=== PATIENT | female | born 1970 | race Caucasian/White ===

== ENCOUNTER 2022-09-28 07:27 | Emergency (ER) | payer OTHER ==
[~2022-09-28] VITALS: Ht 170.1 cm; Wt 63.5 kg
[2022-09-28 08:19] LABS: BASO % 0.3 % (0.0-1.0); EOS # 0.1 10*3/uL (0.0-0.4); EOS % 0.7 % (1.0-4.0); HEMATOCRIT 41.7 % (37.0-47.0); LYMPH # 3.5 10*3/uL (1.3-4.4); LYMPH % 34.4 % (27.0-41.0); MEAN CELL VOLUME 95.9 fl (81.0-99.0); MEAN CORPUSCULAR HGB 32.2 pg (27.0-31.0); MEAN CORPUSCULAR HGB CONC 33.6 g/dl (33.0-37.0); MEAN PLATELET VOLUME 7.9 fl (9.6-12.3); MONO # 0.7 10*3/uL (0.1-1.0); MONO % 7.4 % (3.0-9.0); NEUT # 5.7 10*3/uL (2.3-7.9); NEUT % 56.6 % (47.0-73.0); PLATELET COUNT AUTOMATED 314 10*3/uL (130-400); RED BLOOD COUNT 4.35 10*6/uL (4.10-5.10); RED CELL DISTRI WIDTH 13.1 % (0-14.5); WHITE BLOOD COUNT 10.1 10*3/uL (4.8-10.8)
[2022-09-28 08:43] LABS: ALKALINE PHOSPHATASE 46 U/L (46-116); BUN 7 mg/dl (9-23); CHLORIDE 106 mmol/L (98-107); POTASSIUM 4.9 mmol/L (3.4-5.1); SGPT/ALT 15 U/L (10-49); TOTAL PROTEIN 5.8 gm/dL (6.0-8.0)
[2022-09-28] MEDS ORDERED: PREDNISONE10 MG PO (11:43)
[2022-09-28] MEDS ORDERED: HYDROCODONE-AC1 EAC1 PO (11:43)
[2022-09-28] MEDS ORDERED: CYCLOBENZAPRINE10 MG PO (11:43)
[2022-09-29] MEDS ORDERED: PREDNISONE20 M1 PO (12:20)
== END 2022-09-28 11:59 | disposition home or self-care (01) ==
LOC: ED 07:27
PROVIDERS: Emergency Medicine
DX: S39.012A Strain of muscle, fascia and tendon of lower back, initial encounter (principal); S16.1XXA Strain of muscle, fascia and tendon at neck level, initial encounter; W19.XXXA Unspecified fall, initial encounter; Y93.89 Activity, other specified; Y92.89 Other specified places as the place of occurrence of the external cause; Y99.8 Other external cause status

== ENCOUNTER 2022-09-29 11:26 | Emergency (ER) | payer OTHER ==
[~2022-09-29] VITALS: Ht 170.1 cm; Wt 63.5 kg
[~2022-09-29 11:26] MED LIST: CYCLOBENZAPRINE10 MG PO; HYDROCODONE-AC1 EAC1 PO; PREDNISONE10 MG PO
[2022-09-29] MEDS ORDERED: PREDNISONE20 M1 PO (12:20)
== END 2022-09-29 12:34 | disposition home or self-care (01) ==
LOC: ED 11:26
DX: M54.2 Cervicalgia (principal); G89.29 Other chronic pain; M54.9 Dorsalgia, unspecified

== ENCOUNTER 2022-10-14 10:59 | Emergency (ER) | payer OTHER ==
[~2022-10-14] VITALS: Ht 170.1 cm; Wt 63.5 kg
[~2022-10-14 10:59] MED LIST changes: +PREDNISONE20 M1 PO
[2022-10-14] MEDS ORDERED: GEN7T1 EACH T (11:18)
[2022-10-14] MEDS ORDERED: KETOROLAC10 MG PO (11:18)
== END 2022-10-14 11:24 | disposition home or self-care (01) ==
LOC: ED 10:59
DX: S39.012A Strain of muscle, fascia and tendon of lower back, initial encounter (principal); X58.XXXA Exposure to other specified factors, initial encounter; Y93.89 Activity, other specified; Y92.89 Other specified places as the place of occurrence of the external cause; Y99.8 Other external cause status

== ENCOUNTER 2023-04-27 14:55 | Emergency (ER) | payer OTHER ==
[~2023-04-27] VITALS: Wt 59.0 kg
[~2023-04-27 14:55] MED LIST changes: +GEN7T1 EACH T; +KETOROLAC10 MG PO
[2023-04-27] MEDS ORDERED: CYMBALTA60 MG PO (15:12)
[2023-04-27] MEDS ORDERED: LAMOTRIGINE150 MG PO (15:12)
[2023-04-27] MEDS ORDERED: NAPROXEN500 M1 PO (15:13)
[2023-04-27 15:44] LABS: BASO % 0.2 % (0.0-1.0); EOS # 0.1 10*3/uL (0.0-0.4); EOS % 1.2 % (1.0-4.0); HEMATOCRIT 37.2 % (37.0-47.0); LYMPH # 1.7 10*3/uL (1.3-4.4); LYMPH % 27.7 % (27.0-41.0); MEAN CELL VOLUME 96.1 fl (81.0-99.0); MEAN CORPUSCULAR HGB 32.6 pg (27.0-31.0); MEAN CORPUSCULAR HGB CONC 33.9 g/dl (33.0-37.0); MEAN PLATELET VOLUME 7.9 fl (9.6-12.3); MONO # 0.4 10*3/uL (0.1-1.0); MONO % 6.5 % (3.0-9.0); NEUT # 3.9 10*3/uL (2.3-7.9); NEUT % 64.2 % (47.0-73.0); PLATELET COUNT AUTOMATED 253 10*3/uL (130-400); RED BLOOD COUNT 3.87 10*6/uL (4.10-5.10); RED CELL DISTRI WIDTH 11.6 % (0-14.5)
[2023-04-27 16:16] LABS: ALKALINE PHOSPHATASE 41 U/L (46-116); BUN 11 mg/dl (9-23); CHLORIDE 111 mmol/L (98-107); LIPASE 30 U/L (12-53); POTASSIUM 4.4 mmol/L (3.4-5.1); SGPT/ALT 15 U/L (5-49); TOTAL PROTEIN 5.3 gm/dL (6.0-8.0)
[2023-04-27] MEDS ORDERED: PREDNISONE50 MG PO (18:18)
[2023-04-27] MEDS ORDERED: CYCLOBENZAPRINE10 MG PO (18:18)
[2023-04-27] MEDS ORDERED: PERCOCET 5-3251 EACH PO (18:18)
== END 2023-04-27 18:34 | disposition home or self-care (01) ==
LOC: ED 14:55
PROVIDERS: Emergency Medicine
DX: M25.512 Pain in left shoulder (principal); J44.9 Chronic obstructive pulmonary disease, unspecified; M19.90 Unspecified osteoarthritis, unspecified site

== ENCOUNTER 2023-05-11 14:43 | Emergency (ER) | payer OTHER ==
[~2023-05-11] VITALS: Ht 170.1 cm; Wt 61.2 kg
[~2023-05-11 14:43] MED LIST changes: +CYMBALTA60 MG PO; +LAMOTRIGINE150 MG PO; +NAPROXEN500 M1 PO; +PERCOCET 5-3251 EACH PO; +PREDNISONE50 MG PO
== END 2023-05-11 16:23 | disposition home or self-care (01) ==
LOC: ED 14:43
DX: G89.29 Other chronic pain (principal); M54.50 Low back pain, unspecified; M25.512 Pain in left shoulder; J44.9 Chronic obstructive pulmonary disease, unspecified; M19.90 Unspecified osteoarthritis, unspecified site; Z98.890 Other specified postprocedural states

== ENCOUNTER 2023-06-07 13:17 | Emergency (ER) | payer OTHER ==
[~2023-06-07] VITALS: Ht 170.1 cm; Wt 61.2 kg
[2023-06-07] MEDS ORDERED: Acetaminophen/Oxycodone 5 MG/325 MG TABLET PO ONE ×2 (14:40→18:10)
[2023-06-07 15:40] LABS: BASO % 0.3 % (0.0-1.0); EOS # 0.1 10*3/uL (0.0-0.4); EOS % 1.3 % (1.0-4.0); HEMATOCRIT 38.8 % (37.0-47.0); LYMPH # 2.2 10*3/uL (1.3-4.4); LYMPH % 30.6 % (27.0-41.0); MEAN CELL VOLUME 93.9 fl (81.0-99.0); MEAN PLATELET VOLUME 7.7 fl (9.6-12.3); MONO # 0.7 10*3/uL (0.1-1.0); MONO % 9.3 % (3.0-9.0); NEUT # 4.2 10*3/uL (2.3-7.9); NEUT % 58.4 % (47.0-73.0); PLATELET COUNT AUTOMATED 345 10*3/uL (130-400); RED BLOOD COUNT 4.13 10*6/uL (4.10-5.10); RED CELL DISTRI WIDTH 11.9 % (0-14.5); WHITE BLOOD COUNT 7.2 10*3/uL (4.8-10.8)
[2023-06-07 15:57] LABS: ALKALINE PHOSPHATASE 55 U/L (46-116); BUN 9 mg/dl (9-23); CHLORIDE 109 mmol/L (98-107); LIPASE 30 U/L (12-53); POTASSIUM 4.1 mmol/L (3.4-5.1); SGPT/ALT 19 U/L (5-49); TOTAL PROTEIN 5.7 gm/dL (6.0-8.0)
[2023-06-07 16:05] LABS: ACT PARTIAL THROMBO TIME 25.9 SECONDS (20.0-32.1)
== END 2023-06-07 19:39 | disposition home or self-care (01) ==
LOC: ED 13:17
PROVIDERS: Emergency Medicine
DX: M54.50 Low back pain, unspecified (principal); R07.89 Other chest pain; M79.644 Pain in right finger(s); J44.9 Chronic obstructive pulmonary disease, unspecified; M19.90 Unspecified osteoarthritis, unspecified site; Z98.890 Other specified postprocedural states

== ENCOUNTER 2023-06-16 11:29 | Emergency (ER) | payer OTHER ==
[~2023-06-16] VITALS: Ht 170.1 cm; Wt 61.2 kg
[2023-06-16] MEDS ORDERED: Cyclobenzaprine Hydrochlorid 10 MG TAB PO ONE (12:20)
[2023-06-16] MEDS ORDERED: Acetaminophen/Oxycodone 5 MG/325 MG TABLET PO ONE (12:20)
[2023-06-16] MEDS ORDERED: PERCOCET 5-3251 EACH PO (14:02)
[2023-06-16] MEDS ORDERED: CYCLOBENZAPRINE10 MG PO (14:02)
== END 2023-06-16 14:06 | disposition home or self-care (01) ==
LOC: ED 11:29
DX: M54.50 Low back pain, unspecified (principal); Z79.899 Other long term (current) drug therapy; Z98.890 Other specified postprocedural states; W22.09XA Striking against other stationary object, initial encounter; Y93.89 Activity, other specified; Y92.89 Other specified places as the place of occurrence of the external cause; Y99.8 Other external cause status

== ENCOUNTER 2023-07-07 10:57 | Emergency (ER) | payer OTHER ==
[~2023-07-07] VITALS: Ht 170.1 cm; Wt 62.1 kg
[2023-07-07] MEDS ORDERED: Acetaminophen/Oxycodone 5 MG/325 MG TABLET PO ONE (11:25)
== END 2023-07-07 13:03 | disposition home or self-care (01) ==
LOC: ED 10:57
DX: M54.50 Low back pain, unspecified (principal); J44.9 Chronic obstructive pulmonary disease, unspecified; M19.90 Unspecified osteoarthritis, unspecified site; Z98.890 Other specified postprocedural states

== ENCOUNTER 2023-08-19 14:22 | Emergency (ER) | payer OTHER ==
[~2023-08-19] VITALS: Ht 170.1 cm; Wt 63.5 kg
[2023-08-19] MEDS ORDERED: GABAPENTIN600 MG PO (14:37)
[2023-08-19] MEDS ORDERED: ALBUTEROL HFA 90 MCG (14:37)
[2023-08-19] MEDS ORDERED: TRELEGY ELLIPT1 EAC1 INH (14:37)
[2023-08-19] MEDS ORDERED: HYDROXYZINE HCL25 MG PO (14:38)
[2023-08-19] MEDS ORDERED: LIDOCAN III1 EACH T (14:38)
[2023-08-19] MEDS ORDERED: ACETAMINOPHEN 325 MG TAB PO ONE (15:25)
== END 2023-08-19 15:39 | disposition left against medical advice (07) ==
LOC: ED 14:22
DX: M54.2 Cervicalgia (principal); J44.9 Chronic obstructive pulmonary disease, unspecified; M19.90 Unspecified osteoarthritis, unspecified site; Z53.29 Procedure and treatment not carried out because of patient's decision for other reasons

== ENCOUNTER 2023-10-15 05:20 | Emergency (ER) | payer OTHER ==
[~2023-10-15] VITALS: Ht 170.1 cm; Wt 63.5 kg
[~2023-10-15 05:20] MED LIST changes: +ALBUTEROL HFA 90 MCG; +GABAPENTIN600 MG PO; +HYDROXYZINE HCL25 MG PO; +LIDOCAN III1 EACH T; +TRELEGY ELLIPT1 EAC1 INH
[2023-10-15] MEDS ORDERED: Acetaminophen/Oxycodone 5 MG/325 MG TABLET PO ONE (06:00)
[2023-10-15] MEDS ORDERED: CYCLOBENZAPRINE5 M3 PO (06:02)
== END 2023-10-15 06:21 | disposition home or self-care (01) ==
LOC: ED 05:20
DX: M54.50 Low back pain, unspecified (principal); J44.9 Chronic obstructive pulmonary disease, unspecified; M19.90 Unspecified osteoarthritis, unspecified site; Z98.890 Other specified postprocedural states

== ENCOUNTER 2023-10-28 05:11 | Emergency (ER) | payer OTHER ==
[~2023-10-28] VITALS: Ht 170.1 cm; Wt 63.5 kg
[~2023-10-28 05:11] MED LIST changes: +CYCLOBENZAPRINE5 M3 PO
[2023-10-28] MEDS ORDERED: Ketorolac Tromethamine 30 MG/ML VIAL IM ONE (07:00)
== END 2023-10-28 07:27 | disposition home or self-care (01) ==
LOC: ED 05:11
DX: M53.3 Sacrococcygeal disorders, not elsewhere classified (principal); J44.9 Chronic obstructive pulmonary disease, unspecified; M19.90 Unspecified osteoarthritis, unspecified site; Z98.890 Other specified postprocedural states

== ENCOUNTER 2023-11-28 10:00 | Emergency (ER) | payer OTHER ==
[~2023-11-28] VITALS: Ht 170.1 cm; Wt 63.5 kg
== END 2023-11-28 10:35 | disposition home or self-care (01) ==
LOC: ED 10:00
DX: M54.50 Low back pain, unspecified (principal); R11.0 Nausea; J44.9 Chronic obstructive pulmonary disease, unspecified; M19.90 Unspecified osteoarthritis, unspecified site; Z98.890 Other specified postprocedural states; Z53.29 Procedure and treatment not carried out because of patient's decision for other reasons

== ENCOUNTER 2024-01-27 10:42 | Emergency (ER) | payer OTHER ==
[~2024-01-27] VITALS: Ht 170.1 cm; Wt 63.5 kg
[2024-01-27] MEDS ORDERED: Acetaminophen/Oxycodone 5 MG/325 MG TABLET PO ONE (10:55)
== END 2024-01-27 11:48 | disposition home or self-care (01) ==
LOC: ED 10:42
DX: S93.402A Sprain of unspecified ligament of left ankle, initial encounter (principal); M54.50 Low back pain, unspecified; Z79.899 Other long term (current) drug therapy; Z98.890 Other specified postprocedural states; W18.39XA Other fall on same level, initial encounter; Y93.89 Activity, other specified; Y92.090 Kitchen in other non-institutional residence as the place of occurrence of the external cause; Y99.8 Other external cause status

== ENCOUNTER 2024-02-28 04:04 | Emergency (ER) | payer OTHER ==
[~2024-02-28] VITALS: Ht 175.2 cm; Wt 77.1 kg
[2024-02-28] MEDS ORDERED: Ondansetron Hydrochloride 4 MG TAB SL ONE (04:30)
[2024-02-28] MEDS ORDERED: Acetaminophen/Oxycodone 5 MG/325 MG TABLET PO ONE (04:30)
== END 2024-02-28 04:45 | disposition home or self-care (01) ==
LOC: ED 04:04
DX: S60.221A Contusion of right hand, initial encounter (principal); G89.29 Other chronic pain; M25.572 Pain in left ankle and joints of left foot; M79.672 Pain in left foot; M54.9 Dorsalgia, unspecified; Z79.899 Other long term (current) drug therapy; Z98.890 Other specified postprocedural states; W22.01XA Walked into wall, initial encounter; Y93.89 Activity, other specified; Y92.89 Other specified places as the place of occurrence of the external cause; Y99.8 Other external cause status

== ENCOUNTER 2024-03-08 09:54 | Emergency (ER) | payer OTHER ==
[~2024-03-08] VITALS: Wt 63.5 kg
[2024-03-08] MEDS ORDERED: LIDOCAINE 1 EA PATCH T ONE (10:20)
== END 2024-03-08 10:28 | disposition left against medical advice (07) ==
LOC: ED 09:54
DX: M54.50 Low back pain, unspecified (principal); J44.9 Chronic obstructive pulmonary disease, unspecified; M19.90 Unspecified osteoarthritis, unspecified site; Z53.29 Procedure and treatment not carried out because of patient's decision for other reasons; Z98.890 Other specified postprocedural states; Z76.5 Malingerer [conscious simulation]

== ENCOUNTER 2024-04-26 03:24 | Emergency (ER) | payer OTHER ==
[~2024-04-26] VITALS: Ht 170.1 cm; Wt 63.5 kg
[2024-04-26] MEDS ORDERED: Acetaminophen/Oxycodone 5 MG/325 MG TABLET PO ONE (04:30)
== END 2024-04-26 05:57 | disposition home or self-care (01) ==
LOC: ED 03:24
DX: S46.912A Strain of unspecified muscle, fascia and tendon at shoulder and upper arm level, left arm, initial encounter (principal); S70.02XA Contusion of left hip, initial encounter; S70.211A Abrasion, right hip, initial encounter; G89.29 Other chronic pain; R51.9 Headache, unspecified; J44.9 Chronic obstructive pulmonary disease, unspecified; M19.90 Unspecified osteoarthritis, unspecified site; Z98.890 Other specified postprocedural states; Y08.89XA Assault by other specified means, initial encounter; Y93.89 Activity, other specified; Y92.89 Other specified places as the place of occurrence of the external cause; Y99.8 Other external cause status

== ENCOUNTER 2024-05-21 03:06 | Emergency (ER) | payer OTHER ==
[~2024-05-21] VITALS: Wt 56.7 kg
[2024-05-21] MEDS ORDERED: Acetaminophen/Oxycodone 5 MG/325 MG TABLET PO ONE (04:15)
[2024-05-21] MEDS ORDERED: NAPROXEN250 MG PO (04:16)
[2024-05-21] MEDS ORDERED: METHOCARBAMOL500 M1 PO (04:16)
== END 2024-05-21 04:21 | disposition home or self-care (01) ==
LOC: ED 03:06
DX: M25.512 Pain in left shoulder (principal); M54.50 Low back pain, unspecified; J44.9 Chronic obstructive pulmonary disease, unspecified; M19.90 Unspecified osteoarthritis, unspecified site; Z98.890 Other specified postprocedural states

== ENCOUNTER 2024-07-22 07:44 | Emergency (ER) | payer OTHER ==
[~2024-07-22] VITALS: Ht 172.7 cm; Wt 59.0 kg
[~2024-07-22 07:44] MED LIST changes: +METHOCARBAMOL500 M1 PO; +NAPROXEN250 MG PO
[2024-07-22] MEDS ORDERED: Ondansetron Hydrochloride 4 MG/2 ML VIAL IV ONE (08:10)
[2024-07-22] MEDS ORDERED: MORPHINE Sulfate 2 MG/ML SYR IV ONE (08:10)
[2024-07-22] MEDS ORDERED: SODIUM CHLORIDE 0.9% 1,000 ML IV ONE (08:10)
[2024-07-22 08:27] LABS: BASO % 0.2 % (0.0-1.0); EOS % 0.1 % (1.0-4.0); HEMATOCRIT 39.9 % (37.0-47.0); MEAN CELL VOLUME 91.1 fl (81.0-99.0); MEAN CORPUSCULAR HGB 31.5 pg (27.0-31.0); MEAN CORPUSCULAR HGB CONC 34.6 g/dl (33.0-37.0); MEAN PLATELET VOLUME 7.9 fl (9.6-12.3); MONO # 0.7 10*3/uL (0.1-1.0); MONO % 5.4 % (3.0-9.0); NEUT # 9.8 10*3/uL (2.3-7.9); NEUT % 78.6 % (47.0-73.0); PLATELET COUNT AUTOMATED 369 10*3/uL (130-400); RED BLOOD COUNT 4.38 10*6/uL (4.10-5.10); RED CELL DISTRI WIDTH 12.9 % (0-14.5); WHITE BLOOD COUNT 12.5 10*3/uL (4.8-10.8)
[2024-07-22 08:46] LABS: BUN 9 mg/dl (9-23); CHLORIDE 102 mmol/L (98-107); POTASSIUM 3.2 mmol/L (3.4-5.1)
[2024-07-22] MEDS ORDERED: POTASSIUM CHLORIDE 20 MEQ TAB PO ONE (08:50)
== END 2024-07-22 09:15 | disposition home or self-care (01) ==
LOC: ED 07:44
PROVIDERS: Emergency Medicine
DX: R09.1 Pleurisy (principal); J44.9 Chronic obstructive pulmonary disease, unspecified; G89.29 Other chronic pain; F17.200 Nicotine dependence, unspecified, uncomplicated; Z79.899 Other long term (current) drug therapy; Z98.890 Other specified postprocedural states

== ENCOUNTER 2024-08-19 01:09 | Emergency (ER) | payer OTHER ==
[~2024-08-19] VITALS: Ht 172.7 cm; Wt 61.2 kg
[2024-08-19 02:10] LABS: BASO % 0.1 % (0.0-1.0); HEMATOCRIT 39.2 % (37.0-47.0); MEAN CELL VOLUME 92.2 fl (81.0-99.0); MEAN CORPUSCULAR HGB 31.3 pg (27.0-31.0); MEAN CORPUSCULAR HGB CONC 33.9 g/dl (33.0-37.0); MEAN PLATELET VOLUME 7.7 fl (9.6-12.3); MONO # 0.4 10*3/uL (0.1-1.0); MONO % 4.9 % (3.0-9.0); NEUT # 6.4 10*3/uL (2.3-7.9); NEUT % 78.1 % (47.0-73.0); PLATELET COUNT AUTOMATED 302 10*3/uL (130-400); RED BLOOD COUNT 4.25 10*6/uL (4.10-5.10); RED CELL DISTRI WIDTH 13.2 % (0-14.5); WHITE BLOOD COUNT 8.1 10*3/uL (4.8-10.8)
[2024-08-19] MEDS ORDERED: Ondansetron Hydrochloride 4 MG TAB SL ONE (02:20)
[2024-08-19 02:41] LABS: ALKALINE PHOSPHATASE 89 U/L (46-116); BUN 13 mg/dl (9-23); CHLORIDE 104 mmol/L (98-107); POTASSIUM 3.6 mmol/L (3.4-5.1); SGPT/ALT 18 U/L (5-49); TOTAL PROTEIN 7.1 gm/dL (6.0-8.0)
[2024-08-19] MEDS ORDERED: OXYCODONE HCL (IR) 5 MG TAB PO ONE ×2 (03:15→06:00)
== END 2024-08-19 06:18 | disposition home or self-care (01) ==
LOC: ED 01:09
PROVIDERS: Emergency Medicine
DX: R07.89 Other chest pain (principal); G89.29 Other chronic pain; M25.512 Pain in left shoulder; M25.551 Pain in right hip; Z79.899 Other long term (current) drug therapy; Z98.890 Other specified postprocedural states; X50.0XXA Overexertion from strenuous movement or load, initial encounter; Y93.F2 Activity, caregiving, lifting; Y92.128 Other place in nursing home as the place of occurrence of the external cause; Y99.8 Other external cause status

== ENCOUNTER 2024-09-11 01:48 | Emergency (ER) | payer OTHER ==
[2024-09-11] MEDS ORDERED: Ondansetron Hydrochloride 4 MG TAB SL ONE (03:20)
[2024-09-11] MEDS ORDERED: OXYCODONE HCL (IR) 5 MG TAB PO ONE ×2 (03:20)
== END 2024-09-11 03:33 | disposition home or self-care (01) ==
LOC: ED 01:48
DX: S30.0XXA Contusion of lower back and pelvis, initial encounter (principal); M25.551 Pain in right hip; M25.552 Pain in left hip; J44.9 Chronic obstructive pulmonary disease, unspecified; Z79.899 Other long term (current) drug therapy; Z98.890 Other specified postprocedural states; W18.39XA Other fall on same level, initial encounter; Y93.89 Activity, other specified; Y92.89 Other specified places as the place of occurrence of the external cause; Y99.8 Other external cause status

== ENCOUNTER 2024-10-02 07:39 | Emergency (ER) | payer OTHER ==
[~2024-10-02] VITALS: Wt 56.2 kg
[2024-10-02] MEDS ORDERED: Acetaminophen/Oxycodone 5 MG/325 MG TABLET PO ONE (10:20)
== END 2024-10-02 10:33 | disposition home or self-care (01) ==
LOC: ED 07:39
DX: M54.50 Low back pain, unspecified (principal); M25.512 Pain in left shoulder; M25.551 Pain in right hip; J44.9 Chronic obstructive pulmonary disease, unspecified; Z79.899 Other long term (current) drug therapy; Z98.890 Other specified postprocedural states

== ENCOUNTER 2024-10-16 05:51 | Emergency (ER) | payer OTHER ==
[~2024-10-16] VITALS: Ht 167.6 cm; Wt 56.7 kg
[2024-10-16] MEDS ORDERED: Acetaminophen/Oxycodone 5 MG/325 MG TABLET PO ONE (06:25)
[2024-10-16] MEDS ORDERED: Ondansetron Hydrochloride 4 MG TAB SL ONE (06:25)
== END 2024-10-16 06:38 | disposition home or self-care (01) ==
LOC: ED 05:51
DX: K08.89 Other specified disorders of teeth and supporting structures (principal); J44.9 Chronic obstructive pulmonary disease, unspecified; Z79.899 Other long term (current) drug therapy; Z98.890 Other specified postprocedural states; Y04.0XXA Assault by unarmed brawl or fight, initial encounter; Y93.89 Activity, other specified; Y92.89 Other specified places as the place of occurrence of the external cause; Y99.8 Other external cause status

== ENCOUNTER 2024-11-09 20:14 | Emergency (ER) | payer OTHER ==
[~2024-11-09] VITALS: Ht 172.7 cm; Wt 57.2 kg
[2024-11-09] MEDS ORDERED: BUSPAR5 MG PO (20:39)
[2024-11-09] MEDS ORDERED: METHOCARBAMOL500 M1 PO (20:40)
[2024-11-09] MEDS ORDERED: OXYCODONE HCL (IR) 10 MG TABLET PO ONE ×3 (21:15→21:55)
== END 2024-11-09 22:19 | disposition home or self-care (01) ==
LOC: ED 20:14
DX: G89.29 Other chronic pain (principal); M25.512 Pain in left shoulder; Z79.899 Other long term (current) drug therapy; Z98.890 Other specified postprocedural states

== ENCOUNTER 2024-12-07 05:26 | Emergency (ER) | payer OTHER ==
[~2024-12-07] VITALS: Ht 170.1 cm; Wt 54.4 kg
[~2024-12-07 05:26] MED LIST changes: +BUSPAR5 MG PO
[2024-12-07 05:44] LABS: BILIRUBIN Negative (Negative); BLOOD Negative (Negative); CLARITY Clear (Clear); COLOR Yellow (Yellow); KETONE Trace (Negative); LEUKO ESTERASE Negative (Negative); NITRITE Negative (Negative); PH 6.0 (4.5-8.0); SPECIFIC GRAVITY >= 1.030 (1.001-1.030); UROBILINOGEN 1.0 E.U./dl (0.0-1.0)
[2024-12-07 05:59] LABS: BACTERIA TRACE
[2024-12-07] MEDS ORDERED: Acetaminophen/Oxycodone 5 MG/325 MG TABLET PO ONE (06:00)
== END 2024-12-07 06:08 | disposition home or self-care (01) ==
LOC: ED 05:26
PROVIDERS: Internal Medicine
DX: M54.50 Low back pain, unspecified (principal); R10.30 Lower abdominal pain, unspecified; R39.11 Hesitancy of micturition; Z79.899 Other long term (current) drug therapy; Z98.890 Other specified postprocedural states

== ENCOUNTER 2024-12-18 02:56 | Emergency (ER) | payer OTHER ==
[~2024-12-18] VITALS: Ht 170.1 cm; Wt 59.0 kg
[2024-12-18] MEDS ORDERED: Acetaminophen/Oxycodone Hydr 7.5 MG/325 MG TABLET PO ONE ×2 (03:35)
== END 2024-12-18 03:42 | disposition home or self-care (01) ==
LOC: ED 02:56
DX: G89.29 Other chronic pain (principal); M25.511 Pain in right shoulder; Z79.899 Other long term (current) drug therapy; Z98.890 Other specified postprocedural states

== ENCOUNTER 2024-12-30 21:09 | Emergency (ER) | payer OTHER ==
[~2024-12-30] VITALS: Wt 63.5 kg
[2024-12-30] MEDS ORDERED: Acetaminophen/Oxycodone Hydr 7.5 MG/325 MG TABLET PO ONE ×2 (21:55)
[2024-12-30] MEDS ORDERED: LORazepam 1 MG TAB PO ONE (21:55)
== END 2024-12-30 22:57 | disposition home or self-care (01) ==
LOC: ED 21:09
DX: M54.50 Low back pain, unspecified (principal); F41.9 Anxiety disorder, unspecified; M25.512 Pain in left shoulder; Z79.899 Other long term (current) drug therapy; Z98.890 Other specified postprocedural states

== ENCOUNTER 2025-01-09 06:28 | Emergency (ER) | payer OTHER ==
[~2025-01-09] VITALS: Ht 170.1 cm; Wt 59.9 kg
[2025-01-09] MEDS ORDERED: Acetaminophen/Oxycodone 5 MG/325 MG TABLET PO ONE (07:15)
== END 2025-01-09 07:45 | disposition home or self-care (01) ==
LOC: ED 06:28
DX: M54.50 Low back pain, unspecified (principal); Z79.899 Other long term (current) drug therapy; Z98.890 Other specified postprocedural states; W17.89XA Other fall from one level to another, initial encounter; Y93.89 Activity, other specified; Y92.89 Other specified places as the place of occurrence of the external cause; Y99.8 Other external cause status

== ENCOUNTER 2025-01-16 05:30 | Emergency (ER) | payer OTHER | END 2025-01-16 05:50 | disposition left against medical advice (07) | LOC: ED 05:30 | DX: G89.29 Other chronic pain (principal); M54.50 Low back pain, unspecified; Z79.899 Other long term (current) drug therapy; Z98.890 Other specified postprocedural states; Z53.29 Procedure and treatment not carried out because of patient's decision for other reasons ==

== ENCOUNTER 2025-01-18 20:18 | Emergency (ER) | payer OTHER ==
[~2025-01-18] VITALS: Ht 170.2 cm; Wt 56.7 kg
[2025-01-18] MEDS ORDERED: [UNRECOGNIZED DRUG - OTHER] (20:30)
[2025-01-18] MEDS ORDERED: OXYCODONE-ACET1 EAC3 PO (20:30)
[2025-01-18] MEDS ORDERED: ACETAMINOPHEN500 M4 PO (20:30)
[2025-01-19] MEDS ORDERED: OXYCODONE HCL (IR) 10 MG TABLET PO ONE (00:50)
== END 2025-01-19 00:53 | disposition home or self-care (01) ==
LOC: ED 20:18
DX: M16.11 Unilateral primary osteoarthritis, right hip (principal); G89.29 Other chronic pain; M54.50 Low back pain, unspecified; H53.8 Other visual disturbances; Z79.899 Other long term (current) drug therapy; Z98.890 Other specified postprocedural states; M25.519 Pain in unspecified shoulder

== ENCOUNTER 2025-02-03 06:40 | Emergency (ER) | payer OTHER ==
[~2025-02-03 06:40] MED LIST changes: +ACETAMINOPHEN500 M4 PO; +OXYCODONE-ACET1 EAC3 PO; +[UNRECOGNIZED DRUG - OTHER]
[2025-02-04] MEDS ORDERED: PREDNISONE20 M1 PO (09:25)
[2025-02-04] MEDS ORDERED: Ondansetron4 MG PO (09:25)
[2025-02-04] MEDS ORDERED: METHOCARBAMOL750 M1 PO (09:25)
[2025-02-04] MEDS ORDERED: PERCOCET 5-3251 EACH PO (09:25)
== END 2025-02-03 07:51 | disposition left against medical advice (07) ==
LOC: ED 06:40
DX: G89.29 Other chronic pain (principal); M54.9 Dorsalgia, unspecified; M54.2 Cervicalgia; M25.511 Pain in right shoulder; J44.9 Chronic obstructive pulmonary disease, unspecified; M06.9 Rheumatoid arthritis, unspecified; G40.909 Epilepsy, unspecified, not intractable, without status epilepticus; Z98.890 Other specified postprocedural states

== ENCOUNTER 2025-02-04 08:56 | Emergency (ER) | payer OTHER ==
[~2025-02-04] VITALS: Ht 170.1 cm; Wt 61.2 kg
[2025-02-04] MEDS ORDERED: Acetaminophen/Oxycodone 5 MG/325 MG TABLET PO ONE (09:25)
[2025-02-04] MEDS ORDERED: Ondansetron Hydrochloride 4 MG TAB PO ONE (09:25)
[2025-02-04] MEDS ORDERED: PREDNISONE20 M1 PO (09:25)
[2025-02-04] MEDS ORDERED: PERCOCET 5-3251 EACH PO (09:25)
[2025-02-04] MEDS ORDERED: Ondansetron4 MG PO (09:25)
[2025-02-04] MEDS ORDERED: METHOCARBAMOL750 M1 PO (09:25)
[2025-02-04] MEDS ORDERED: Dexamethasone Sodium Phospha 20 MG/5 ML VIAL IM ONE (09:25)
== END 2025-02-04 10:00 | disposition home or self-care (01) ==
LOC: ED 08:56
DX: G89.29 Other chronic pain (principal); M54.50 Low back pain, unspecified; M25.512 Pain in left shoulder; J44.9 Chronic obstructive pulmonary disease, unspecified; M06.9 Rheumatoid arthritis, unspecified; G40.909 Epilepsy, unspecified, not intractable, without status epilepticus

== ENCOUNTER 2025-02-17 09:14 | Emergency (ER) | payer OTHER ==
[~2025-02-17 09:14] MED LIST changes: +METHOCARBAMOL750 M1 PO; +Ondansetron4 MG PO
== END 2025-02-17 09:45 | disposition left against medical advice (07) ==
LOC: ED 09:14
DX: M54.50 Low back pain, unspecified (principal); M25.512 Pain in left shoulder

== ENCOUNTER 2025-02-24 05:25 | Emergency (ER) | payer OTHER ==
[2025-02-24] MEDS ORDERED: Acetaminophen/Oxycodone 5 MG/325 MG TABLET PO ONE (07:35)
[2025-02-24] MEDS ORDERED: Acetaminophen/Oxycodone 5 MG/325 MG TABLET ONE (08:01)
== END 2025-02-24 07:35 | disposition home or self-care (01) ==
LOC: ED 05:25
DX: M25.551 Pain in right hip (principal); G89.29 Other chronic pain; J44.9 Chronic obstructive pulmonary disease, unspecified; M06.9 Rheumatoid arthritis, unspecified; G40.909 Epilepsy, unspecified, not intractable, without status epilepticus; Z98.890 Other specified postprocedural states

== ENCOUNTER 2025-04-16 08:51 | Emergency (ER) | payer OTHER ==
[~2025-04-16] VITALS: Ht 170.1 cm; Wt 59.0 kg
== END 2025-04-16 09:23 | disposition left against medical advice (07) ==
LOC: ED 08:51
DX: M25.551 Pain in right hip (principal); M25.552 Pain in left hip; J44.9 Chronic obstructive pulmonary disease, unspecified; M06.9 Rheumatoid arthritis, unspecified; G40.909 Epilepsy, unspecified, not intractable, without status epilepticus; Z98.890 Other specified postprocedural states